=== PATIENT | male | born 1965 | race Caucasian/White ===

== ENCOUNTER 2024-04-18 13:09 | Emergency (ER) | payer OTHER, SELFPAY ==
[2024-04-18 13:18] VITALS: BP 134/75; PULSE 80; RESP 18; TEMP 36.8; O2SAT 98; BMI 24.0
--- NOTE | 2024-04-18 13:23 | DI.RAD.S_ITS ---
PROCEDURE: XR WRIST RT MIN 3V INDICATIONS: fall yesterday, pain TECHNIQUE: 4 views of the wrist were acquired. COMPARISON: None. FINDINGS: Bones: Question nondisplaced radial styloid fracture. This is not definite. No other fractures or dislocations. No suspicious bony lesions. Soft tissues: No suspicious soft tissue calcifications. IMPRESSION: Question nondisplaced radial styloid fracture. Recommend correlation with presence or absence of focal point tenderness. Dictated by: Onur Alarcon M.D. on 04/18/2024 at 14:00 Approved by: Onur Alarcon M.D. on 04/18/2024 at 14:01
--- NOTE | 2024-04-18 13:44 | ED_ITS ---
HPI - Fall General Chief Complaint: Fall Stated Complaint: fall off ladder, work injury Time Seen by Provider: 04/18/24 13:35 Source: patient Mode of arrival: Ambulatory History of Present Illness HPI Narrative: 58-year-old male, daily smoker, presents to the emergency department with right wrist and lower back pain x1 day. Patient was at work on the 2nd step of a ladder, and when he was attempting to step down from the ladder, caught his foot and fell backwards landing on gravel. Patient states he hit his lower back his right wrist and head but denies any loss of consciousness, blurry vision, loss of control of bowel or bladder or lower extremity numbness or tingling. Patient did take ibuprofen yesterday and this morning, that has helped with his low back pain, but not helped with his right wrist pain. Patient has been wearing a brace on his right wrist that has helped with some of the discomfort. Patient is left-hand dominant. Related Data Allergies Allergy/AdvReac Type Severity Reaction Status Date / Time No Known Drug Allergies Allergy Verified 04/18/24 13:18 Review of Systems Review of Systems Narrative: Narrative: See HPI. GENERAL: Denies chills, fatigue, fever, sweats. HEENT: Denies sinus pain, ear pain, sore throat, difficulty swallowing, dizzin ess. RESPIRATORY: Denies dyspnea, cough, wheezing, sputum. CARDIOVASCULAR: Denies chest pain, palpitations, edema. GASTROINTESTINAL: Denies nausea, vomiting, abdominal pain, diarrhea, constipation. : Denies dysuria, frequency, incontinence, hematuria, urinary retention, flank pain. MSK: Denies weakness. Endorses right wrist and low back pain. SKIN: Denies rash, skin lesions, or pruritis. NEUROLOGIC: Denies weakness, dizziness, headache, numbness, confusion. PSYCHIATRIC: No concerning psychosocial issues. Patient History Social History Smoking Status: Current every day smoker Smoking Status: Current every day smoker tobacco type: cigarettes Exam Narrative Exam Narrative: Exam Narrative: GENERAL: This is a well-nourished, well-developed patient, in no acute distress. HEAD: Atraumatic. Normocephalic. EYES: Pupils equal round and reactive. Extraocular motions intact. No scleral icterus, injection or drainage. ENT: Nose without bleeding, purulent drainage. Throat without erythema, tonsillar hypertrophy or exudate. Uvula midline. Airway patent. TMs and canals clear. No sinus tenderness. No raccoon eyes or gong signs. NECK: Trachea midline. No C-spine tenderness. No JVD or lymphadenopathy. Nontender. CARDIOVASCULAR: Regular rate and rhythm without murmurs, peripheral pulses intact, cap refill <2 sec. RESPIRATORY: Breath sounds equal and clear bilaterally. No wheezes, rales, or rhonchi. No cough. No increased respiratory effort. No accessory muscle use. GASTROINTESTINAL: Abdomen soft, non-tender, nondistended without guarding or rebound. No suprapubic pain. MSK: Moves all extremities. Normal range of motion, no clubbing or edema. Neurovascularly intact. No signs of trauma to lower back. NEURO: A&O x 3. SKIN: Warm, dry, no rashes or lesions noted. WRIST: There is no swelling, bruising or asymmetry. There is tenderness to palpation over the distal ulnar head but no tenderness to palpation over the carpals, distal radial head. There is no snuff-box tenderness. Sensation grossly intact. Patient is unable to pronate and supinate without pain. Range of motion of wrist is limited due to pain. Radial pulse intact. Occupational Therapist is strong and equivalent. Inter-digital strength is intact. The contralateral wrist exam is unremarkable. Initial Vital Signs Initial Vital Signs: Vital Signs Temperature 98.2 F 04/18/24 13:18 Pulse Rate 80 04/18/24 13:18 Respiratory Rate 18 04/18/24 13:18 Blood Pressure 134/75 04/18/24 13:18 Pulse Oximetry 98 04/18/24 13:18 Oxygen Delivery Method Room Air 04/18/24 13:18 Reviewed Course Orders Ordered: ED Orders 04/18/24 13:23 XR wrist RT min 3V Stat Vital Signs Vital signs: Vital Signs - 8 hr 04/18/24 13:18 Temperature 98.2 F Pulse Rate 80 Respiratory Rate 18 Blood Pressure 134/75 Pulse Oximetry 98 Oxygen Delivery Method Room Air MDM - Fall Differential Diagnosis Differential diagnosis: Likely fracture of wrist and other (Low back pain, wrist strain) Imaging Data Extremity x-ray #1: Radiologist's Impression: [address] [address] XRay Report Signed Patient: Venkat Camilo MR#: [id number] : 1965 Acct:[id number] Age/Sex: 58 / M Date of Service: 04/18/24 Loc: ED Accession Number: [id number] Procedure: XR wrist RT min 3V Ordering Provider: Hiram Murray MD PROCEDURE: XR WRIST RT MIN 3V INDICATIONS: fall yesterday, pain TECHNIQUE: 4 views of the wrist were acquired. COMPARISON: None. FINDINGS: Bones: Question nondisplaced radial styloid fracture. This is not definite. No other fractures or dislocations. No suspicious bony lesions. Soft tissues: No suspicious soft tissue calcifications. IMPRESSION: Question nondisplaced radial styloid fracture. Recommend correlation with presence or absence of focal point tenderness. Dictated by: Onur Alarcon M.D. on 04/18/2024 at 14:00 Approved by: Onur Alarcon M.D. on 04/18/2024 at 14:01 [facility] Narrative Medical decision making narrative: 58-year-old male with right wrist and low back pain secondary to a 2 ft fall from a ladder yesterday at work. Assessment was encouraging and clinical findings did not reveal any red flag symptoms. Wrist x-ray revealed questionable radial styloid fracture, but patient is not experiencing pain with palpation of the radial aspect, pain only with the distal ulna. Discussed supportive care measures including Rest (modified activity), along with ice, compression wrap/splint-immobilize as directed and elevation above heart. Tylenol or Ibuprofen for discomfort. L&I paperwork completed in its entirety. Discussed plan of care and return precautions with patient, who verbalized understanding and was agreeable with course of action. Discharge Plan Departure Patient Disposition: Home Clinical Impression: Sprain and strain of right wrist Instructions: DI for Wrist Pain Activity Restrictions/Additional Instructions: *You have been diagnosed with a right wrist sprain/strain. The x-ray was negative for a fracture of the painful area. Good supportive care includes Rest (modified activity), along with ice, compression wrap/splint-immobilize as directed and elevation above heart. Tylenol or Ibuprofen for discomfort. For any worsening symptoms, please return to the emergency department. Otherwise, please follow-up with your family doctor as needed. *What to do: *Please continue to take your regular medications as directed. [ ] New medication prescriptions sent to your pharmacy: [ ] [ ] New medication written as a paper prescription [x ] No new medications given *Please follow up with your primary care provider in 2-3 days, call for an appointment. Let them know you were seen in the Emergency Department and that we ask that you be seen in follow up. We will electronically transmit a record of today's note if your PCP is in our system *If you do not have a primary care provider please contact the [facility] Resource line at [phone]. They will ask some questions about your medical history and help get you set up with a doctor in the community. ? Return to ER if you should have any new, worsening or concerning symptoms, reveles ch as worsening pain, severe headache, confusion, chest pain, difficulty breathing, fever greater than 101 F, shaking chills, persistent vomiting to the point that you cannot drink fluids, or other new or worsening symptoms. Stand Alone Forms: Patient Portal/API/Survey
== END 2024-04-18 14:20 | disposition home or self-care (01) ==
PROVIDERS: Emergency Provider Registered Nurse
DX: S63.501A Unspecified sprain of right wrist, initial encounter (principal); M54.50 Low back pain, unspecified; W11.XXXA Fall on and from ladder, initial encounter; Y99.0 Civilian activity done for income or pay
CPT/HCPCS: 73110; 99281; 99283